=== PATIENT | male | born 1965 | race Two or more races ===

== ENCOUNTER 2019-05-21 08:29 | Day surgery (SDC) | payer OTHER ==
[2019-05-21] VITALS (9 sets, daily range): BP systolic 136–150; BP diastolic 84–107
[~2019-05-21] VITALS: Ht 175.3 cm; Wt 136.1 kg
[~2019-05-21 08:29] MED LIST: LR 1000ml 1,000 ML IVLG SCH
[2019-05-21] MEDS ORDERED: LR 1000ml ONE (09:00)
[2019-05-21] MEDS ORDERED: Propofol 200mg/20ml IV ONE (09:00)
[2019-05-21] MEDS ORDERED: Lidocaine 1% MPF 10mg/ml 5ml ONE (09:00)
--- NOTE | 2019-05-21 09:08 | Short Stay Surgery H&P ---
History of Present Illness History of Present Illness Chief Complaint GERDs/abdominal pains LIDIA Christian is a 54 year old male who was admitted on for GERDS/ abdominal pains Patient History Allergies: Coded Allergies: No Known Allergies (Unverified , 05/20/19) PAST MEDICAL HISTORY: (1) History of surgery on arm Review of Systems Cardiovascular: Reports: no symptoms Respiratory: Reports: no symptoms Skeletal: Reports: trauma Gastrointestinal: Reports: gastro esophageal reflux disease Genitourinary: Reports: no symptoms Neurologic: Reports: no symptoms Endocrine: Reports: no symptoms Hematologic: Reports: no symptoms Physical Exam Skin: normal HENT: normal Heart: normal Lungs: normal Abdomen: abnormal Extremities: normal Genitourinary: normal Plan Plan of Care Upper GI endoscopy and biopsy. Preop Interventions None. Summary of Findings See the reports Attestation Are the patient's medical conditions optimized for surgery? Attestation Response: yes Leonel Dewitt MD May 21, 2019 09:08
--- NOTE | 2019-05-21 09:09 | Pre-Procedure Note/Attestation ---
Pre-Procedure Note/Attestation Complete Prior to Procedure Planned Procedure: left Procedure Narrative: Examination of the upper and the lower GI tract via endoscopy Indications for Procedure Pre-Operative Diagnosis: R/O gastritis/Gastric ulcer Attestation I attest that I discussed the nature of the procedure; its benefits; risks and complications; and alternatives (and the risks and benefits of such alternatives ), prior to the procedure, with the patient (or the patient's legal logistics service representative). I attest that, if there was a reasonable possibility of needing a blood transfusion, the patient (or the patient's legal logistics service representative) was given the [facility] standardized written summary, pursuant to the [place] Blood Safety Act ([place] Health and Safety Code # 1645, as amended). I attest that I re-evaluated the patient just prior to the surgery and that there has been no change in the patient's H&P, except as documented below: Leonel Dewitt MD May 21, 2019 09:09
[2019-05-21] MEDS ORDERED: LR 1000ml 1,000 ML IVLG SCH (09:20)
--- NOTE | 2019-05-21 09:25 | Immediate Post-Op Evaluation ---
Immediate Post-Op Evalulation Immediate Post-Op Evalulation Procedure: EGD Date of Evaluation: May 21, 2019 Time of Evaluation: 10:12 IV Fluids: 400 LR Blood Products: 0 Estimated Blood Loss: 2 Urinary Output: 0 Blood Pressure Systolic: 159 Blood Pressure Diastolic: 115 Pulse Rate: 103 Respiratory Rate: 16 O2 Sat by Pulse Oximetry: 100 Temperature (Fahrenheit): 97.4 Pain Score (1-10): 1 Nausea: No Vomiting: No Complications 0 Patient Status: awake, reacts, patent, none Hydration Status: adequate Washington Garza MD May 21, 2019 09:25
--- NOTE | 2019-05-21 09:25 | Anethesia Preoperative Eval ---
Anesthesia Pre-op PMH/ROS General Date of Evaluation: May 21, 2019 Time of Evaluation: 09:18 Anesthesiologist: Greg ASA Score: ASA 3 Mallampati Score Class I : Soft palate, uvula, fauces, pillars visible Class II: Soft palate, uvula, fauces visible Class III: Soft palate, base of uvula visible Class IV: Only hard plate visible Mallampati Classification: Class III Surgeon: Renate Diagnosis: Abd Pain Surgical Procedure: EGD Anesthesia History: none Family History: no anesthesia problems Allergies: Coded Allergies: No Known Allergies (Unverified , 05/20/19) Medications: see eMAR Patient NPO?: Yes Past Medical History Cardiovascular: Reports: HTN Neurologic/Psychiatric: Reports: depression/anxiety Other: obesity - Morbid BMI 47 Anesthesia Pre-op Phys. Exam Physician Exam Last Vital Signs Date Time Temp Pulse Resp B/P (MAP) Pulse Ox O2 Delivery O2 Flow Rate FiO2 05/21/19 09:07 Room Air 05/21/19 09:06 97.6 89 18 137/90 95 Constitutional: NAD Neurologic: CN 2-12 intact Cardiovascular: RRR Respiratory: CTA Gastrointestinal: S/NT/ND Airway Exam Mallampati Score: Class III MO: limited ROM: limited Teeth: missing, intact Anesthesia Pre-op A/P Risk Assessment & Plan Assessment: ASA 3 Plan: TIVA Status Change Before Surgery: Washington Rose MD May 21, 2019 09:25
--- NOTE | 2019-05-21 09:26 | 48 Hour Post Anesthesia Eval ---
Post Anesthesia Evaluation Procedure: EGD Date of Evaluation: May 21, 2019 Time of Evaluation: 12:43 Blood Pressure Systolic: 147 0: 87 Pulse Rate: 93 Respiratory Rate: 18 Temperature (Fahrenheit): 98.2 O2 Sat by Pulse Oximetry: 96 Airway: patent Nausea: No Vomiting: No Pain Intensity: 2 Hydration Status: adequate Cardiopulmonary Status: Stable Mental Status/LOC: patient returned to baseline Follow-up Care/Observations: 0 Post-Anesthesia Complications: 0 Follow-up care needed: ready to discharge Washington Garza MD May 21, 2019 09:26
[2019-05-21] MEDS ORDERED: Meperidine 25mg/0.5ml Inj (FOR RIGORS ONLY) IV PRN (09:30)
[2019-05-21] MEDS ORDERED: Hydromorphone 0.5mg/0.5ml inj IVP PRN (09:30)
[2019-05-21] MEDS ORDERED: Midazolam 2mg/2ml Inj IVP PRN (09:30)
[2019-05-21] MEDS ORDERED: oxyCODONE HCL/Acetaminophen 5/325mg ORAL PRN (09:30)
[2019-05-21] MEDS ORDERED: DiphenhydrAMINE 50mg/ml Inj IVP PRN (09:30)
[2019-05-21] MEDS ORDERED: Labetalol 5mg/ml 20ml vial IV PRN (09:30)
[2019-05-21] MEDS ORDERED: fentaNYL 100 mcg/2 mL IV PRN (09:30)
[2019-05-21] MEDS ORDERED: HYDROcodone/Acetamin 7.5/325 tab ORAL PRN (09:30)
[2019-05-21] MEDS ORDERED: LORazepam Inj 2mg/ml 1ml IV PRN (09:30)
[2019-05-21] MEDS ORDERED: Ketorolac 30mg Inj IV PRN ×2 (09:30)
[2019-05-21] MEDS ORDERED: Atropine Sulfate 0.4mg/ml inj IVP PRN (09:30)
[2019-05-21] MEDS ORDERED: HYDROcodone/Acetamin 5/325 tab ORAL PRN (09:30)
[2019-05-21] MEDS ORDERED: Metoclopramide 10mg/2ml Inj IVP PRN (09:30)
--- NOTE | 2019-05-21 09:43 | Endoscopy Procedure Note ---
Endoscopy Procedure Note General Indication for Procedure: Abdominal pains/GERDs Procedures Performed: EGD - Mild gastritis; otherwise normal upper GI. endoscopy. Biopsies obtained from antrum and gastric body per random. Specimen: yes Pt Tolerated Procedure Well: Yes Estimated Blood Loss: none Anesthesia Anesthesiologist: Dr. Garza Anesthesia: moderate sedation Medications Medication Given: see anesthesia record Inserted Devices Implant(s) used?: No Quality Quality of Bowel Preparation: Excellent Was there any complications?: No GI Core Measures 50 yrs or older w/o bx or poly: Not Applicable 10yrs. F/U recommended: Not Applicable If not recommended, why?: Med reason:<3 yrs.: System Reason:<3 yrs.: Leonel Dewitt MD May 21, 2019 09:43
--- NOTE | 2019-05-21 09:45 | Discharge Instructions ---
Discharge Instructions Discharge Instructions Follow up with: Results will be sent to [facility]. Call office after 1 week for final. For Congestive Heart Failure Reminder Report to your physician any weight gain of 5 pounds or more in one week. Leonel Dewitt MD May 21, 2019 09:45
--- NOTE | 2019-05-21 15:30 | Operative Note - Dictated ---
DATE OF OPERATION: 05/21/2019 SURGEON: Leonel Dewitt M.D. PROCEDURE: Esophagogastroduodenoscopy with biopsy. PREOPERATIVE DIAGNOSIS: Abdominal pain and epigastric pain, also rule out peptic ulcer disease. POSTOPERATIVE DIAGNOSIS: Mild generalized gastritis. Biopsy was taken from the antrum and gastric area per random. MEDICATION USED: Per Dr. Garza, anesthesiologist. INSTRUMENT: GIF Olympus upper GI video endoscope. DESCRIPTION OF PROCEDURE: The patient after arriving in the endoscopy unit, was told about risks and benefits of the procedure, which he accepted and signed informed consent. At this time, he was put in the left lateral decubitus position. After adequate IV sedation, the scope was gently passed through the cricopharyngeal area, was lodged into the upper esophagus and gradually advanced towards gastroesophageal junction. The entire length of the esophagus looked normal as well as the gastroesophageal junction looked normal without any evidence of Hugo's or hiatal hernia. At this time, the scope was advanced into the stomach. Gastric cavity was distended with insufflation of air and gradually the areas of the body and the fundus and the antrum were examined. There was mild amount of bile in the stomach. However, the gastric mucosa generally revealed evidence of mild erythema consistent with mild gastritis. There were no ulcers, tumors, polyps, bleeding sites, etc. Gradually, the scope was passed through the antrum and first and second portion of duodenum were also found to be completely normal. At this time, one random biopsy from antrum and the other one from gastric body was obtained and subsequently scope was retroflexed and the area of the gastroesophageal junction was examined in a closer fashion, which did not reveal any other abnormalities. Finally, the scope was pulled out and the procedure was terminated. The patient tolerated the procedure well and left the endoscopy room in a good condition. Leonel Dewitt M.D. DR: MARCELA JOB#: [id number] CC:
--- NOTE | 2019-05-21 15:30 | Pre-op HX & Phy Repo 2 SIG ---
DATE OF ADMISSION: 05/21/2019 HISTORY OF PRESENT ILLNESS: The patient is a 54-year-old gentleman who is being seen prior to undergoing the procedure for upper GI endoscopy for which he has been scheduled to receive for evaluation of his gastrointestinal conditions, which has been basically symptoms of abdominal pain and chronic gastroesophageal reflux. He has been seen by another carpenters helper not too long ago and was found to have the possibility of untreated Helicobacter pylori infection, which was thought to be had been aggravated by usage of nonsteroidal anti-inflammatory agents that the applicant has been prescribed subsequent to his work related injury. However, the patient is also complaining of having symptoms of reflux, feeling pressure over the upper part of the abdomen radiating towards the chest area as well. He reports that these pains are quite severe at times, but there is no history of dysphagia, odynophagia, hematemesis, melena, gastrointestinal bleeding, etc with it. He reports that he was taking ibuprofen for a long period of time after his accident. However, he was recently stopped taking them when he was told that they produce a lot of GI symptoms. He reported that occasionally he is taking baking soda, but he had not been taking any anti-acid or H2 blockers or proton pump inhibitors for this condition as he was never prescribed by any physician, though, he still had the health care in the past, but he has lost it due to loss of his job. He reported to me that he also has been gaining significant amount of weight which was increasing subsequent to his work injury around 40 to 50 pounds. He also complains of excessive belching. As I mentioned, he used to go to [facility] as it was main place that he was getting health care; however, he has stopped due to loss of his insurance. 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 He reports that he never had any GI symptoms before being started on this medications. PAST MEDICAL HISTORY: Basically nonsignificant. He denies having history of known hypertension, pneumonia, pancreatitis, hepatitis, peptic ulcer disease, arthritis, etc. PAST SURGICAL HISTORY: He has had surgery on his left arm and elbow 20 years ago. ALLERGIES: Nonsignificant. CHILDHOOD DISEASES: As usual. FAMILY HISTORY: Mother had diabetes and father had throat cancer. Diabetes runs in the family. HABITS: He denies drinking alcohol or smoking cigarettes. MEDICATIONS: None at this time. REVIEW OF SYSTEMS: Basically history of present illness as mentioned, but he is still complaining of having pain over the lower back and neck area. PHYSICAL EXAMINATION: GENERAL: Reveals alert, well-oriented gentleman does not seem to be in any acute distress, but he is significantly obese. He answers the questions quite properly. VITAL SIGNS: Blood pressure is 137/90, temperature 97.6, pulse rate 89, respirations 18 per minute, oxygen saturation 95% on room air. HEENT: Normocephalic. Pupils are equal in size and reactive to light and accommodation. No visible jaundice. Buccal cavity, tongue midline, well hydrated. No ulcers. NECK: Supple. No JVD, thyromegaly, or adenopathy. CHEST: Clear to auscultation and percussion. HEART: S1 and S2 normal. Regular rate and rhythm. No gallops or murmur. ABDOMEN: Soft but quite obese, but there area areas of tenderness over the upper part of the abdomen. No organomegaly noted. No masses. EXTREMITIES: Nonsignificant. NEUROLOGIC: Nonsignificant. INITIAL PREOP ENDOSCOPIC IMPRESSION: 1. Chronic abdominal pain, epigastric pain consistent with gastroesophageal acid reflux aggravated by usage of nonsteroidal anti-inflammatory agent use for the treatment of bodily injury. 2. History of reported positive Helicobacter pylori gastritis, possibly aggravated by side effects of NSAIDs. 3. History of bodily injury work-related orthopedic diagnosis. 4. Morbid obesity. RECOMMENDATIONS: The applicant seems to be quite stable at this time to undergo the procedure of upper GI endoscopy and he understands the risks and benefits and will sign the consent. Said Josie Dewitt DR: Santy JOB#: [id number] CC:
== END 2019-05-21 11:20 | disposition home or self-care (01) ==
LOC: GAS 08:29
DX: R10.13 Epigastric pain (principal); K29.50 Unspecified chronic gastritis without bleeding; E66.01 Morbid (severe) obesity due to excess calories; I10 Essential (primary) hypertension; F32.9 Major depressive disorder, single episode, unspecified; F41.9 Anxiety disorder, unspecified; Z68.41 Body mass index [BMI] 40.0-44.9, adult; B96.81 Helicobacter pylori [H. pylori] as the cause of diseases classified elsewhere
CPT/HCPCS: 43239; J2250; J2704; J7120; 94003; 94150

== ENCOUNTER 2019-06-04 06:43 | Day surgery (SDC) | payer OTHER ==
[2019-06-04] VITALS (7 sets, daily range): BP systolic 111–145; BP diastolic 60–94
[~2019-06-04] VITALS: Ht 30.5 cm; Wt 0.5 kg
[2019-06-04] MEDS ORDERED: LR 1000ml 1,000 ML IVLG SCH ×2 (07:00→08:43)
--- NOTE | 2019-06-04 07:37 | Short Stay Surgery H&P ---
History of Present Illness History of Present Illness Chief Complaint Abdominal pains. LIDIA Christian is a 54 year old male who was admitted on for Abdominal Pain Patient History Allergies: Coded Allergies: No Known Allergies (Unverified , 05/20/19) PAST MEDICAL HISTORY: (1) Helicobacter positive gastritis (2) History of surgery on arm Medication History No Active Prescriptions or Reported Meds Review of Systems Cardiovascular: Reports: no symptoms Respiratory: Reports: no symptoms Skeletal: Reports: trauma Gastrointestinal: Reports: obesity, other Genitourinary: Reports: no symptoms Neurologic: Reports: no symptoms Endocrine: Reports: no symptoms Hematologic: Reports: no symptoms Physical Exam Skin: normal HENT: normal Heart: normal Lungs: normal Abdomen: abnormal Extremities: normal Genitourinary: normal Plan Plan of Care Total colonoscopy Preop Interventions None. Summary of Findings See the reports Attestation Are the patient's medical conditions optimized for surgery? Attestation Response: yes Leonel Dewitt MD Jun 04, 2019 07:37
--- NOTE | 2019-06-04 07:38 | Pre-Procedure Note/Attestation ---
Pre-Procedure Note/Attestation Complete Prior to Procedure Planned Procedure: left Procedure Narrative: Examination of the colon via endoscopy Indications for Procedure Pre-Operative Diagnosis: R/O Colitis/colon polyps/tumor Attestation I attest that I discussed the nature of the procedure; its benefits; risks and complications; and alternatives (and the risks and benefits of such alternatives ), prior to the procedure, with the patient (or the patient's legal sales representative publications). I attest that, if there was a reasonable possibility of needing a blood transfusion, the patient (or the patient's legal sales representative publications) was given the [facility] standardized written summary, pursuant to the [place] Blood Safety Act ([place] Health and Safety Code # 1645, as amended). I attest that I re-evaluated the patient just prior to the surgery and that there has been no change in the patient's H&P, except as documented below: Leonel Dewitt MD Jun 04, 2019 07:38
--- NOTE | 2019-06-04 07:53 | Anethesia Preoperative Eval ---
Anesthesia Pre-op PMH/ROS General Date of Evaluation: Jun 04, 2019 Anesthesiologist: Rip ASA Score: ASA 2 Mallampati Score Class I : Soft palate, uvula, fauces, pillars visible Class II: Soft palate, uvula, fauces visible Class III: Soft palate, base of uvula visible Class IV: Only hard plate visible Mallampati Classification: Class III Surgeon: Renate Diagnosis: Screening Surgical Procedure: Colonoscopy Anesthesia History: none Family History: no anesthesia problems Allergies: Coded Allergies: No Known Allergies (Unverified , 05/20/19) Medications: see eMAR Patient NPO?: Yes NPO Date: Jun 04, 2019 NPO Time: 00:00 Past Medical History Cardiovascular: Reports: HTN; Denies: CAD, [place], valve dz, arrhythmia, other Pulmonary: Denies: asthma, COPD, KRISH, other Gastrointestinal/Genitourinary: Reports: GERD; Denies: CRI, ESRD, other Neurologic/Psychiatric: Reports: depression/anxiety; Denies: dementia, CVA, TIA, other Endocrine: Denies: DM, hypothyroidism, steroids, other HEENT: Denies: cataract (L), cataract (R), glaucoma, [place] (L), [place] (R), other Hematology/Immune: Denies: anemia, DVT, bleeding disorder, other Musculoskeletal/Integumentary: Reports: other - LBP; Denies: OA, RA, DJD, DDD, edema Other: obesity PSxH Narrative: BMT Anesthesia Pre-op Phys. Exam Physician Exam see chart Constitutional: NAD Cardiovascular: RRR Respiratory: CTA Airway Exam Mallampati Score: Class III MO: limited ROM: limited Anesthesia Pre-op A/P Labs see chart Studies Pre-op Studies: EKG - sr Risk Assessment & Plan Assessment: ASA II Plan: MAC Status Change Before Surgery: No Pre-Antibiotics Drug: N/A Tatyana Webb MD Jun 04, 2019 07:53
[2019-06-04] MEDS ORDERED: DiphenhydrAMINE 50mg/ml Inj IVP PRN (08:45)
--- NOTE | 2019-06-04 08:52 | Short Stay Surgery H&P ---
History of Present Illness History of Present Illness Chief Complaint Abdominal pains LIDIA Christian is a 54 year old male who was admitted on for Abdominal Pain , Gerd/abdominal pains Patient History Allergies: Coded Allergies: No Known Allergies (Unverified , 05/20/19) PAST MEDICAL HISTORY: (1) Helicobacter positive gastritis (2) History of surgery on arm Medication History No Active Prescriptions or Reported Meds Review of Systems Respiratory: Reports: no symptoms Skeletal: Reports: trauma Gastrointestinal: Reports: gastro esophageal reflux disease Genitourinary: Reports: no symptoms Neurologic: Reports: no symptoms Endocrine: Reports: no symptoms Hematologic: Reports: no symptoms Physical Exam Vital Signs Last Vital Signs Date Time Temp Pulse Resp B/P (MAP) Pulse Ox O2 Delivery O2 Flow Rate FiO2 06/04/19 08:06 Room Air 06/04/19 08:05 97.9 78 18 145/88 94 Skin: normal HENT: normal Heart: normal Lungs: normal Abdomen: abnormal Extremities: normal Genitourinary: normal Plan Plan of Care Total colonoscopy with biopsy and polypectomy Preop Interventions None. Summary of Findings See the reports. Attestation Are the patient's medical conditions optimized for surgery? Attestation Response: yes Leonel Dewitt MD Jun 04, 2019 08:52
--- NOTE | 2019-06-04 08:53 | Pre-Procedure Note/Attestation ---
Pre-Procedure Note/Attestation Complete Prior to Procedure Planned Procedure: left Procedure Narrative: Examination of the colon via endoscopy Indications for Procedure Pre-Operative Diagnosis: R/O Colitis/colon polyps/tumor Attestation I attest that I discussed the nature of the procedure; its benefits; risks and complications; and alternatives (and the risks and benefits of such alternatives ), prior to the procedure, with the patient (or the patient's legal solar sales representative and assessor). I attest that, if there was a reasonable possibility of needing a blood transfusion, the patient (or the patient's legal solar sales representative and assessor) was given the [facility] standardized written summary, pursuant to the [place] Blood Safety Act ([place] Health and Safety Code # 1645, as amended). I attest that I re-evaluated the patient just prior to the surgery and that there has been no change in the patient's H&P, except as documented below: Leonel Dewitt MD Jun 04, 2019 08:53
[2019-06-04] MEDS ORDERED: Lidocaine 1% MPF 10mg/ml 5ml ONE (09:00)
[2019-06-04] MEDS ORDERED: Propofol 200mg/20ml IV ONE (09:00)
[2019-06-04] MEDS ORDERED: LR 1000ml ONE (09:00)
--- NOTE | 2019-06-04 09:16 | Endoscopy Procedure Note ---
Endoscopy Procedure Note General Indication for Procedure: Abdominal pains/occasional rectal bleeding Procedures Performed: colonoscopy - Rare diverticulosis of the rectosigmoid, otherwise normal tlotal colonoscopy. Specimen: none Pt Tolerated Procedure Well: Yes Estimated Blood Loss: none Anesthesia Anesthesiologist: Dr. Erwin Anesthesia: moderate sedation Medications Medication Given: see anesthesia record Inserted Devices Implant(s) used?: No Quality Quality of Bowel Preparation: Fair Did scope reach the cecum?: Yes Was there any complications?: No GI Core Measures 50 yrs or older w/o bx or poly: Yes 10yrs. F/U recommended: Yes 18 years or older w/prev. colo: No <3yrs. since last colonoscopy: Yes Med reason:<3 yrs.: System Reason:<3 yrs.: Last colonoscopy >= to 3yrs: Yes Leonel Dewitt MD Jun 04, 2019 09:16
--- NOTE | 2019-06-04 09:17 | Discharge Instructions ---
Discharge Instructions Discharge Instructions Follow up with: No need to follow up with doctor unless authorized For Congestive Heart Failure Reminder Report to your physician any weight gain of 5 pounds or more in one week. Leonel Dewitt MD Jun 04, 2019 09:17
--- NOTE | 2019-06-04 09:24 | Immediate Post-Op Evaluation ---
Immediate Post-Op Evalulation Immediate Post-Op Evalulation Procedure: Colonoscopy Date of Evaluation: Jun 04, 2019 Time of Evaluation: 09:26 IV Fluids: 300 Blood Products: 0 Estimated Blood Loss: 0 Urinary Output: 0 Blood Pressure Systolic: 111 Blood Pressure Diastolic: 60 Pulse Rate: 72 Respiratory Rate: 16 O2 Sat by Pulse Oximetry: 100 Temperature (Fahrenheit): 97.8 Pain Score (1-10): 0 Nausea: No Vomiting: No Complications 0 Patient Status: awake, reacts, patent, none Hydration Status: adequate Drug: N/a Tatyana Webb MD Jun 04, 2019 09:24
--- NOTE | 2019-06-04 09:25 | 48 Hour Post Anesthesia Eval ---
Post Anesthesia Evaluation Procedure: Colonoscopy Date of Evaluation: Jun 04, 2019 Airway: patent Nausea: No Vomiting: No Pain Intensity: 0 Hydration Status: adequate [facility]iopulmonary [facility] Mental Status/LOC: patient returned to baseline Post-Anesthesia Complications: 0 Follow-up care needed: ready to discharge Tatyana Webb MD Jun 04, 2019 09:25
--- NOTE | 2019-06-04 15:00 | Pre-op HX & Phy Repo 2 SIG ---
DATE OF ADMISSION: 06/04/2019 HISTORY OF PRESENT ILLNESS: The patient is a 54-year-old gentleman, who is being seen prior to undergoing the procedure of total colonoscopy for which he has been scheduled to receive for evaluation of his GI symptoms that he has been complaining. The patient basically was seen in my office two to three months ago and at that time, he was complaining of experiencing pain over the upper and lower part of the abdomen. The patient also was found to have history of chronic gastroesophageal acid reflux at that time and he subsequently underwent an upper GI endoscopy later, which revealed evidence of positive Helicobacter pylori that had been also reported by Dr. 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 The patient basically at that time when I saw him, was complaining of having severe gastroesophageal reflux and acid and he was taking medications such as PPI and H2 blockers, which seemed to have been helpful in controlling his condition. Subsequently, he was also complaining of occasional rectal bleeding. There was no nausea or vomiting at that time either. As I mentioned, the patient underwent an upper GI endoscopy and the finding was consistent with Helicobacter pylori being present and has been diagnosed by Dr. Bacon as well. The patient was recommended to receive antibiotic treatment for his condition and he was prescribed as such with a prescription, however, he has not been able to get it through his provider due to lack of authorization. At this time, the patient today tells me that he still continues to have abdominal pain and occasional constipation. The pain is also located over upper and mostly over the lower part of the abdomen. In the past, he has been taking analgesics along with nonsteroidal anti-inflammatory agents that he is still taking such as ibuprofen on a daily basis of 800 mg daily. He denies having any nausea or vomiting at this point and there is no history of any major constipation, though occasionally he does have change in bowel movements. He is taking also occasional fiber medication as well. 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 PAST MEDICAL HISTORY: Basically none significant. He denies having any hypertension or history of gastritis, pancreatitis, pneumonitis, liver disease, etc. There is no history of hypertension, as I mentioned. PAST SURGICAL HISTORY: He has had history of surgery over his left arm, which goes back to 20 years ago. ALLERGIES: None significant. FAMILY HISTORY: Father had throat cancer and mother has had history of diabetes. Diabetes runs in the family. HABITS: The applicant denies drinking alcohol or smoking cigarettes. MEDICATIONS: Current medications, ibuprofen and vitamin D. REVIEW OF SYSTEMS: Basically history of present illness as he denies having any shortness of breath or chest pain. No urinary symptoms, etc. PHYSICAL EXAMINATION: GENERAL: At this time reveals alert, well-oriented gentleman, does not seem to be in any acute distress. He looks well developed and nourished and quite obese. VITAL SIGNS: Temperature is 97.9, pulse rate 78 per minute, respirations 18 per minute, blood pressure 145/88, oxygen saturation 94% on room air. HEENT: Normocephalic. Pupils equal in size and reactive to light and accommodation. No visible jaundice. Buccal cavity, tongue midline, well hydrated. No ulcers. NECK: Supple. No JVD, thyromegaly, or adenopathy. CHEST: Clear to auscultation and percussion. No rales or rhonchi. HEART: S1, S2 normal. Regular rhythm. No gallops or murmur. ABDOMEN: Quite obese and soft. However, there are areas of the tenderness over the upper and lower part of the abdomen. There is no organomegaly. No palpable mass. Bowel sounds are present. EXTREMITIES: Within normal limits. No pretibial edema, cyanosis, or clubbing. CENTRAL NERVOUS SYSTEM: Grossly normal. INITIAL PREOPERATIVE IMPRESSION: 1. Abdominal pain consistent with prior history of epigastric pain along with gastroesophageal reflux. Also, rule out colonic pain due to colitis, hemorrhoids, polyps, tumors, NSAID-induced colitis, etc. 2. History of Helicobacter pylori gastric infection. 3. History of bodily injury. 4. Morbid obesity. RECOMMENDATIONS: The applicant at this time seems to be quite stable to undergo the procedure of total colonoscopy for which he has been authorized and accepted as the part of his claim. He understands the risks and benefits and will sign the consent. Said Josie Dewitt DR: LYNDA JOB#: [id number] CC: SIRENA
--- NOTE | 2019-06-04 15:30 | Operative Note - Dictated ---
DATE OF OPERATION: 06/04/2019 SURGEON: Leonel Dewitt M.D. PROCEDURE: Total colonoscopy. PREOPERATIVE DIAGNOSIS: Abdominal pain, history of occasional rectal bleeding. POSTOPERATIVE DIAGNOSIS: Very rare rectosigmoid diverticular lesion, otherwise completely normal total colonoscopy up to the base of the cecum as examined. No evidence of major hemorrhoids. MEDICATION USED: Per Dr. Erwin, anesthesiologist. INSTRUMENT: GIF Olympus video colonoscope. DESCRIPTION OF PROCEDURE: The patient after arriving at endoscopy unit, was told about risks and benefits of the procedure, which he accepted and signed informed consent. He was then put on the left lateral decubitus position. After adequate IV sedation, the scope was gently passed through the anal area and careful examination of this section along with performing retroflexion maneuver revealed no particular major hemorrhoids. There was no irritability or friability, bleeding, etc. The rest of the rectal area also looked normal. At this time, the scope was gradually passed towards the rectosigmoid area, which revealed evidence of couple of diverticular lesions of no great significance. There was no any evidence of inflammatory process, ulceration, etc. Subsequently, scope was passed through the left descending colon, gradually reached towards the splenic flexure and from there into the transverse colon all the way to the hepatic flexure and guided into the right colon all the way to the base of the cecum. These areas were examined quite carefully and there were no any evidence of any pathology of any kind by examination of these sections. The colon cleanup was kind of fair with liquidy stool, particularly over the transverse and right ascending colon, which had to be suctioned and irrigated constantly. At this point, upon reaching to the base of the cecum, the scope within 5 to 6 minute gradually pulled out and reexamination of the colon did not reveal any evidence of polyps, tumors, strictures, etc. Finally, the procedure was terminated and the patient tolerated the procedure well and left the endoscopy room in a good condition. Leonel Dewitt M.D. DR: LYNDA JOB#: [id number] CC:
== END 2019-06-04 10:30 | disposition home or self-care (01) ==
LOC: GAS 06:43
DX: R10.9 Unspecified abdominal pain (principal); K57.90 Diverticulosis of intestine, part unspecified, without perforation or abscess without bleeding; E66.01 Morbid (severe) obesity due to excess calories; E66.9 Obesity, unspecified; K21.9 Gastro-esophageal reflux disease without esophagitis; F32.9 Major depressive disorder, single episode, unspecified; F41.9 Anxiety disorder, unspecified; I10 Essential (primary) hypertension
CPT/HCPCS: 45378; J2704; J7120; 94003; 94150